=== PATIENT | female | born 1965 | race Caucasian/White ===

== ENCOUNTER → 2016-06-28 | Outpatient (CLI) | payer BC ==
[~2016-06-28] MED LIST: ACET-749 PO; ACP20 PO; KLNUNK; [UNRECOGNIZED DRUG - OTHER]; [UNRECOGNIZED DRUG - OTHER]
--- NOTE | 2016-06-28 12:42 | MAMMOGRAPHY REPORT ---
BILATERAL DIGITAL SCREENING MAMMOGRAM TOMOSYNTHESIS WITH CAD: 06/28/2016 CLINICAL HISTORY: Patient reported to our angio technologist a palpable abnormality and tender ness in the lateral breast. Brownish nipple discharge was noted during mammogram compression. Hist ory of prior left breast surgery. TECHNIQUE: Bilateral breast tomosynthesis in addition to standard 2D mammography was performed. Curr ent study was also evaluated with a Computer Aided Detection (CAD) system. COMPARISON: Comparison is made to exams dated: 08/04/2014 mammogram, 09/04/2012 mammogram, 12/02/2010 c[facility]etano mogram, 03/16/2009 mammogram - [facility], 03/03/2008, and 02/28/2007. BREAST COMPOSITION: The tissue of both breasts is extremely dense, which lowers the sensitivity of mammography. FINDINGS: A linear scar marker overlies the 3:00 middle one third of the left breast. There are ne w regional pleomorphic microcalcifications throughout the left upper outer quadrant, anterior to pos terior depth, warranting additional spot magnification views. There is a new dense mass with partia lly circumscribed and partially obscured borders in the central left breast measuring approximately 3.9 x 2.5 x 2.7 cm. Additional characterization with ultrasound is recommended. There is also a fo danette area of architectural distortion in the upper outer middle one third of the left breast, warrant ing additional spot compression tomosynthesis views and targeted ultrasound. Within the right breast, there is a possible 7.3 mm mass in the upper outer posterior breast, for wh ich additional spot compression tomosynthesis views and targeted ultrasound are recommended. No oth er suspicious mass, focal area of architectural distortion or suspicious calcifications are seen in the right breast. Given the extremely dense breasts consider bilateral whole breast ultrasound at the time of diagnost ic workup as well, including both axillary regions. IMPRESSION: ACR BI-RADS CATEGORY 0: INCOMPLETE EVALUATION: NEED ADDITIONAL IMAGING EVALUATION 1. New regional pleomorphic left breast microcalcifications, focal area of architectural distortion in the left upper outer quadrant and new central left breast mass need additional imaging evaluatio n. 2. Possible 7.3 mm mass in the upper outer posterior right breast needs additional imaging evaluati on. 3. Given the extremely dense breasts and multiple findings within the the breasts, consider bilater al complete breast ultrasound at the time of diagnostic workup (30 minutes). The patient will be called to schedule an appointment. Approximately 10% of breast cancers are not detected with mammography. A negative mammographic repor t should not delay biopsy if a clinically suggestive mass is present. Edel Camilo M.D. ay/:06/28/2016 08:48:12 Quality Control Chemist: Fabricio HERNANDES)(Kellie), [facility] letter sent: Addl Imaging 0 BI-RADS Code: ACR BI-RADS Category 0: Incomplete Evaluation: Need Additional Imaging Evaluation
== END | disposition home or self-care (01) ==
LOC: C.MAMM 07:14
PROVIDERS: ATTEND Family Medicine
DX: Z12.31 Encounter for screening mammogram for malignant neoplasm of breast (principal); R92.0 Mammographic microcalcification found on diagnostic imaging of breast; N63 Unspecified lump in breast

== ENCOUNTER → 2016-07-06 | Outpatient (CLI) | payer BC ==
--- NOTE | 2016-07-06 15:08 | MAMMOGRAPHY REPORT ---
BILATERAL DIGITAL DIAGNOSTIC MAMMOGRAM TOMOSYNTHESIS AND TARGETED LEFT ULTRASOUND: 07/06/2016 CLINICAL HISTORY: Callback from screening mammogram for bilateral breast findings. The patient repo rts a palpable lump in the left breast over the last month. She also reported she had brown nipple discharge in the left breast during her screening mammogram. TECHNIQUE: Breast tomosynthesis in addition to standard 2D mammography was performed. Spot brianna beba left CC and MLO 2-D and tomosynthesis images, spot compression right CC and MLO 2-D and tomosyn thesis images, and spot magnification left CC and ML views were obtained. COMPARISON: Comparison is made to exams dated: 06/28/2016 mammogram, 08/04/2014 mammogram, 09/04/2012 ma mmogram, 12/02/2010 mammogram, and 03/16/2009 mammogram - [facility]. BREAST COMPOSITION: The tissue of both breasts is extremely dense, which lowers the sensitivity of mammography. FINDINGS: Spot magnification views of the left breast demonstrate new coarse heterogeneous calcific ations seen throughout the left upper outer quadrant, with extent measuring 7.9 cm (transverse dimen beba) by 6.0 cm (craniocaudal dimension). Spot compression views of the left breast demonstrate a p ossible obscured mass seen within the left 3:00 breast measuring approximately 2.9 cm. Spot compression views of the right breast demonstrate a lobulated circumscribed 7 mm mass seen with in the right superior posterior breast overlying the right pectoralis muscle, which appears stable c ompared to multiple prior exams including the 2007 exam and is consistent with a benign intramammary lymph node. Targeted ultrasound was performed of the left upper outer quadrant. In the left breast at 3:00 stevie areolar region, there is an oval anechoic circumscribed mass with mobile echogenic internal debris, measuring 2.9 x 1.2 x 3 cm. This corresponds with the mammographic mass and is consistent with a be nign cyst. Ultrasound of the left upper outer quadrant demonstrates diffusely heterogeneous abnorma l tissue, with multiple hypoechoic areas seen throughout the left upper outer quadrant, which contai n echogenic foci which correspond with the calcifications seen mammographically. In the left breast at 2:00, approximately 4-5 cm from the nipple, there is an area of focal hypoechoic tissue with int ernal calcifications, which corresponds with the palpable lump pointed out by the patient. The area is difficult to measure due to the ill-defined nature but measures at least 3 cm. Additionally, th ere is another masslike hypoechoic region in the left breast at 1:00, 2 cm from the nipple, which me asures 1.1 x 0.8 x 1.3 cm. Ill-defined hypoechoic regions are also seen within the left 12:00 breas t, which also contain internal calcifications. The abnormal hypoechoic regions and corresponding ca lcifications are highly suspicious for malignancy, and ultrasound-guided core needle biopsy is recom mended for further evaluation. I would recommend biopsy of 2 areas to determine extent of disease, likely the palpable finding in the left breast at 2:00, 4-5 cm from the nipple, as well as the left 12:00 breast. Targeted ultrasound was performed of the left axilla, which demonstrates 2 prominent axillary lymph nodes, one measuring 1.3 x 0.6 cm, and the other measuring 1.3 cm. Recommend ultrasound guided core needle biopsy of one of the lymph nodes. Bilateral whole breast ultrasound was deferred at this ti me, as MRI would be preferred over whole breast ultrasound given that MRI is more sensitive and give n the ill-defined heterogeneous nature of the findings on ultrasound. IMPRESSION: ACR BI-RADS CATEGORY 5: HIGHLY SUGGESTIVE OF MALIGNANCY, TARGETED ULTRASOUND ACR BI-RAD S CATEGORY 5: HIGHLY SUGGESTIVE OF MALIGNANCY 1. New suspicious calcifications seen throughout the left upper outer quadrant, with corresponding abnormal hypoechoic tissue seen throughout the left upper outer quadrant on ultrasound. One of the abnormal hypoechoic regions and associated calcifications corresponds with the palpable lump felt by the patient in the left breast at approximately 2:00, 4-5 cm from the nipple. Recommend ultrasound -guided core needle biopsy of 2 areas to determine the extent of disease. I would recommend biopsy of the palpable finding in the left 2:00 breast as well as a hypoechoic region with calcifications i n the left 12:00 breast. 2. 2 prominent left axillary lymph nodes, which are indeterminate for malignancy. Recommend ultras ound-guided core needle biopsy of one of the abnormal lymph nodes. 3. Stable mass in the right superior posterior breast, which is benign and consistent with a normal lymph node. 4. If pathology results are malignant, recommend bilateral breast MRI to determine the extent of di sease and evaluate the contralateral breast, given the extremely dense breast parenchyma bilaterally and given the ill-defined nature on ultrasound. A phone call was made to the physician's office to confirm faxed results were received. The patient has been verbally notified of the results. She tentatively scheduled the biopsies before leaving t he department. Approximately 10% of breast cancers are not detected with mammography. A negative mammographic repor t should not delay biopsy if a clinically suggestive mass is present. Haylie Bailey M.D. ah/:07/06/2016 12:24:13 Fitness Sales Consultant: Kailey Devries RT(R)(M), [facility] letter sent: Abnormal 4/5 BI-RADS Code: ACR BI-RADS Category 5: Highly Suggestive Of Malignancy Ultrasound BI-RADS: ACR BI-RA DS Category 5: Highly Suggestive Of Malignancy
== END | disposition home or self-care (01) ==
LOC: C.MAMM 10:50
PROVIDERS: ATTEND Family Medicine
DX: R92.1 Mammographic calcification found on diagnostic imaging of breast (principal); R59.1 Generalized enlarged lymph nodes

== ENCOUNTER → 2016-07-12 | Outpatient (CLI) | payer BC ==
--- NOTE | 2016-07-12 14:15 | Discharge Instructions ---
Discharge Instructions Procedure Procedure Date: Jul 12, 2016. Reason for visit: Left Breast Masses (X3). Discharge Discharge Date: Jul 12, 2016. Discharge Diagnosis: post left breast ultrasound guided core biopsy x 2 and left axillary lymph node FNA Instructions Activity Recommendations: Additional Limitations (see below) Return to School/Work: no limitations Recommended Home Diet: No Limitations Provider Instructions: ACTIVITY RECOMMENDATIONS: * No lifting, pushing, pulling or exercising the affected side for three days. RETURN TO SCHOOL/WORK: * You may return to work/school after the procedure, but do not perform any strenuous activities for 24 to 48 hours. MEDICATIONS: * Tylenol (two 325 mg) every four to six hours if needed for mild pain (if not allergic to Tylenol). DIET: * Resume previous diet. SPECIAL CARE INSTRUCTIONS: * Keep biopsy site dry for 24 hours. May shower after 24 hours, but do not soak (bathe) incision. * May remove Tegaderm (plastic patch) tomorrow AFTER showering. * Leave the steri-strips on for one week. Allow the steri-strips to fall off by themselves. If not off after one week, you may remove them. You may place a Bandaid crosswise over the strips, if desired. * Apply ice 10 minutes on and 10 minutes off as needed. * Wear a bra at bedtime to sleep more comfortably for 2-3 days. * Your referring physician should have the results after approximately 5 to 7 business days. * Call for unusual bleeding, fever, drainage, etc or if you have any questions call [phone] during normal business hours or after hours call Dr Camilo, . FOLLOW UP VISIT: Follow-up with Referring Physician as scheduled. Allergies Coded Allergies: No Known Allergies (Unverified , 05/26/11) Jodi Peguero Recommendations: Call your doctor if: * Temperature above 101 degrees * Pain not relieved by pain medicine ordered * There is increased drainage or redness from any incision * You have any unanswered questions or concerns. Your Doctors Instructions noted above were prepared by provider Edel Camilo. Patient Signature Section: Patient Instructions Signature Page Marianela Sawyer Patient (or Guardian) Signature/Date: I have read and understand the instructions given to me by my caregivers. Caregiver/RN/Doctor Signature/Date: The above-named patient and/or guardian has received patient instructions on this date. + Original Patient Signature Page (only) stays with chart. Please make copy for patient.
--- NOTE | 2016-07-12 16:06 | MAMMOGRAPHY REPORT ---
ULTRASOUND GUIDED BIOPSY: 07/12/2016 CLINICAL HISTORY: Indeterminate painful palpable solid mass in the 2:00 axes of the left breast, and suspicious hypoechoic solid mass with calcification in the 12:00 left breast. Patient presents for ultrasound-guided core needle biopsy 2. Ultrasound-guided fine-needle aspiration of a morphologic ally abnormal left axillary lymph node was also performed. Please refer to the report from left breast ultrasound guided core biopsy performed at the same time for full detail. IMPRESSION: ULTRASOUND GUIDED BIOPSY Please refer to the report from left breast ultrasound guided core biopsy performed at the same time for full detail. Edel Camilo M.D. ay/:07/12/2016 15:30:08 Attending Technologist: Dr. Edel Camilo, [facility] Radiology Special Procedure Tech: Jenni SILVA(Herlinda)(M), [facility]
--- NOTE | 2016-07-12 16:06 | MAMMOGRAPHY REPORT ---
UNILATERAL LEFT DIGITAL DIAGNOSTIC MAMMOGRAM TOMOSYNTHESIS: 07/12/2016 CLINICAL HISTORY: Status post ultrasound-guided core biopsy 2 in the left breast, and FNA of a left axillary lymph node. Please refer to the report from left breast ultrasound guided core biopsy performed at the same time for full detail. IMPRESSION: POST PROCEDURE IMAGING FOR MARKER PLACEMENT Please refer to the report from left breast ultrasound guided core biopsy performed at the same time for full detail. Approximately 10% of breast cancers are not detected with mammography. A negative mammographic repor t should not delay biopsy if a clinically suggestive mass is present. Edel Camilo M.D. ay/:07/12/2016 15:29:10 Supervisor Drilling And Shooting: Jenni HERNANDES)(Kellie), [facility] BI-RADS Code: Post Procedure Imaging For Marker Placement
--- NOTE | 2016-07-12 16:06 | MAMMOGRAPHY REPORT ---
THIS REPORT HAS BEEN AMENDED. MULTIPLE ULTRASOUND GUIDED BIOPSIES LEFT BREAST: 07/12/2016 CLINICAL HISTORY: 51-year-old woman with new pleomorphic microcalcifications throughout the left upp er outer quadrant, anterior, middle and posterior one third of the breast seen on recent screening m ammogram. Also painful palpable area in the 2:00 left breast and indeterminate hypoechoic solid-jana earing masses with associated calcifications in the 12:00 left breast. Patient presents for ultraso und-guided core needle biopsy 2 in the left breast. Also FNA of a morphologically abnormal left ax illary lymph node. COMPARISON: Comparison is made to exams dated: 07/06/2016 ultrasound, 07/06/2016 mammogram, 06/28/2016 m ammogram, 08/04/2014 mammogram, 09/04/2012 mammogram, and 12/02/2010 mammogram - [facility]. PATIENT CONSENT: The procedure, risks and benefits were discussed with the patient and informed writ ten consent was obtained. Specific risks to this procedure include: bleeding, infection and puncture of adjacent structure, nontarget biopsy, sampling error, metal allergy and medication reaction. PROCEDURE DESCRIPTION: A time out was performed and the left breast was agreed as the site of [address] biopsies and left axilla was agreed as the site of the third biopsy. First repeat targeted ultra sound was performed in the left breast, 12:00, 2:00 axes and left axilla. A large hypoechoic solid mass with internal calcification is identified in the 2:00 left breast. This is amenable to biopsy. 2-3 smaller solid masses with internal calcifications are identified in the 12:00 left breast, dis meri from the palpable area in the 2:00 breast. This is also a target for biopsy. Evaluation of the left axilla was technically difficult given thin patient body habitus but a few grouped lump morpho logically abnormal lymph nodes are seen. First the solid lobulated hypoechoic mass in the 2:00 left breast was identified and targeted for bi opsy. The skin of the left breast was prepped and draped in the usual sterile fashion. Subcutaneous and intraparenchymal 1% buffered lidocaine was administered as local anesthesia. A skin incision wa s made. Through the incision, 2 samples were taken with a 14 gauge Achieve biopsy device. A ribbon- shaped metallic marker was placed at the biopsy site. Hemostasis was achieved after manual compressi on. The patient tolerated the procedure well and there was no immediate complication. Then the grouped hypoechoic solid-appearing masses with internal calcifications in the 12:00 left br east were identified and targeted for biopsy. Additional buffered lidocaine with and without epinep hrine was a commercial leasing manager as local anesthesia. A small incision was made. Through the incision, 3 sampl es were obtained with a 14-gauge achieve biopsy device. A ring shaped metallic marker was placed at this biopsy site. Hemostasis was achieved after manual compression. The patient tolerated the proce dure well and there was no immediate complication. Then the patient was repositioned and the left axilla was scanned. The most prominent morphological ly abnormal lymph node was identified and targeted. The decision was made to attempt fine-needle as piration as opposed to core biopsy given a large vessel located abutting and just superior to this l ymph node, and numerous additional vessels surrounding the lymph node. 1% buffered lidocaine withou t epinephrine was administered as local anesthesia. A 22-gauge needle was advanced into the lymph n ode and fine-needle aspiration was performed. The fluid in the needle hub and syringe was rinsed in CytoLyt and sent to the pathology department for cytologic analysis. All of the samples were sent to the pathology department in appropriately labeled containers. Post procedure left CC and ML views were obtained. A new ribbon-shaped clip is seen in the 2:00 pos terior breast and a new ring shaped clip is seen in the 12:00 anterior left breast. Based on the ax ial projection, the biopsy marker clips are located 6 cm apart. No postbiopsy hematoma is seen. IMPRESSION: ULTRASOUND GUIDED BIOPSY 1. Status post ultrasound-guided core needle biopsy in the 12:00 and 2:00 axes of the left breast, with biopsy markers placed at each site. 2. Status post fine-needle aspiration of a morphologically abnormal lymph node in the left axilla. The patient will receive notification of the results from her referring physician. Edel Camilo M.D. ay/:07/12/2016 15:42:24 Tripe Cooker: Jenni OJEDA (R)), [facility] AMENDMENT: 07/18/2016 Edel Camilo M.D. Pathology results from the ultrasound-guided core needle biopsy of a hypoechoic mass in the 2:00 lat eral breast yielded high-grade DCIS. Negative for invasive carcinoma. Estrogen receptor positive ( 2%, weak), and progesterone receptor positive (1%, weak). Pathology results from the ultrasound guided core biopsy of nodular hypoechoic areas with internal c alcifications in the 12:00 left breast yielded ductal carcinoma in situ, high-grade with necrosis. Negative for invasive carcinoma. Pathology results from fine-needle aspiration of an enlarged left axillary lymph node yielded mature -appearing lymphocytes. No malignancy identified. The pathology results from the 2:00 and 12:00 biopsies within the left breast are concordant with th e imaging appearance. To reiterate, the patient has new pleomorphic microcalcifications in a segmen meri distribution spanning from posterior to anterior breast in the left upper outer quadrant. The b iopsy marker clips are 6 cm distal to each other on the postprocedure mammograms. However, given th e extremely dense breasts and multiple other masslike areas bilaterally, would recommend bilateral b reast MRI prior to definitive surgical management, to evaluate extent of disease and assess for cont ralateral disease. The MRI recommendations were discussed with Dr. Wu's Surgical nurse at 3:30 PM on 07/18/2016.
== END | disposition home or self-care (01) ==
LOC: C.MAMM 12:40
PROVIDERS: ATTEND Family Medicine
DX: D05.12 Intraductal carcinoma in situ of left breast (principal)

== ENCOUNTER → 2017-07-03 | Outpatient (CLI) | payer BC ==
--- NOTE | 2017-07-04 07:55 | MAMMOGRAPHY REPORT ---
UNILATERAL RIGHT DIGITAL DIAGNOSTIC MAMMOGRAM TOMOSYNTHESIS WITH CAD AND TARGETED RIGHT ULTRASOUND: CLINICAL HISTORY: 52-year-old woman with a personal history of left breast cancer status post mastect tete diagnosed in July 2016. Pathology results from the mastectomy specimen and sentinel lymph node biopsies yielded ductal carcinoma in situ, high nuclear grade, with the largest focus covering a span of at least 3.6 cm. All resection margins were considered negative. 3 evaluated lymph nodes were n egative for metastasis. She presents for annual evaluation of the right breast. TECHNIQUE: Right breast tomosynthesis in addition to standard 2D mammography was performed. Current s guerrero was also evaluated with a Computer Aided Detection (CAD) system. COMPARISON: Comparison is made to exams dated: 07/06/2016 mammogram, 06/28/2016 mammogram, 08/04/2014 [facility]ano mogram, 09/04/2012 mammogram, 12/02/2010 mammogram, and 03/16/2009 mammogram - [facility]. BREAST COMPOSITION: The tissue of the right breast is extremely dense, which lowers the sensitivity of mammography. FINDINGS: There is a new incompletely visualized reniform shaped 2.1 cm mass in the far superior and posterior right breast on the MLO view, projecting over the pectoralis muscle/axillary region, most l ikely representing a lymph node. Given the slightly prominent nature of this lymph node and new visu alization comparing to prior exams, further characterization with ultrasound was performed. No suspi cious masses, asymmetries, areas of architectural distortion or microcalcifications are seen in the r ight breast. Targeted ultrasound was performed in the right axilla. There are several lymph nodes identified, the largest of which measures approximately 1.5 cm. This largest lymph node has a focally thickened and nodular cortex measuring 6.5 x 5.5 mm and given this focal/eccentric finding, this lymph node is ind eterminate. The remainder of the visualized lymph nodes have smooth and uniform cortices. Incidenta l note is made of an anechoic cyst in the 10:00 right breast, 2 cm from the nipple, measuring 6.3 x 2 .3 x 4.0 mm. IMPRESSION: ACR BI-RADS CATEGORY 0: INCOMPLETE EVALUATION: NEED ADDITIONAL IMAGING EVALUATION, TARG ETED ULTRASOUND ACR BI-RADS CATEGORY 0: INCOMPLETE EVALUATION: NEED ADDITIONAL IMAGING EVALUATION 1. No definite mammographic evidence of malignancy in the right breast. However, given the personal history of multifocal high-grade left breast DCIS and extremely dense breasts, would recommend addit ional screening with breast MRI. 2. There is a newly visualized prominent 2 cm lymph node in the right axilla with focal cortical thi ckening measuring approximately 6.5 x 5.5 mm. although this lymph node could be within the range of n ormal or reactive, metastatic disease cannot be completely excluded, although this would be less like ly given that all of the lymph nodes sampled in the left axilla were negative for metastatic disease. Nevertheless, tissue sampling with attempted fine-needle aspiration versus core biopsy are recommen ded. Will await MRI results prior to biopsy in case any additional mammographic workup and/or ultras ound may be needed, therefore they can all be performed at the same time. These results and recommendations were discussed with the patient at the time of the exam. Approximately 10% of breast cancers are not detected with mammography. A negative mammographic report should not delay biopsy if a clinically suggestive mass is present. Edel Camilo M.D. ay/:07/03/2017 15:45:19 Diver Assistant: Leigha SILVA(R)(M), [facility] letter sent: Addl Imaging 0 BI-RADS Code: ACR BI-RADS Category 0: Incomplete Evaluation: Need Additional Imaging Evaluation Ult rasound BI-RADS: ACR BI-RADS Category 0: Incomplete Evaluation: Need Additional Imaging Evaluation
== END | disposition home or self-care (01) ==
LOC: C.MAMM 10:32
PROVIDERS: ATTEND Surgery
DX: R92.8 Other abnormal and inconclusive findings on diagnostic imaging of breast (principal)

== ENCOUNTER → 2017-07-12 | Outpatient (CLI) | payer BC ==
[~2017-07-12] MED LIST changes: +GADAVIST IV PRN
--- NOTE | 2017-07-16 07:46 | MAMMOGRAPHY REPORT ---
BREAST MRI OF BOTH BREASTS : 07/12/2017 CLINICAL HISTORY: History of left breast cancer status post mastectomy in 2017. The patient presents for screening MRI of the right breast. She also underwent recent ultrasound of the right axilla whi ch showed a prominent right axillary lymph node for which biopsy was recommended. COMPARISON: Comparison is made to exams dated: 07/03/2017 mammogram, 07/12/2016 ultrasound biopsy, 07/12 mammogram, 07/12/2016 ultrasound biopsy, 07/06/2016 mammogram, and 06/28/2016 mammogram - [facility]. Technique: The patient was placed prone in a dedicated breast imaging coil. Precontrast axial T1 santy ghted, axial and sagittal T2 STIR, axial and sagittal T2 fat saturation, and axial T1 weighted fat sa turation images were obtained. After the administration of 5 mL of Gadavist IV contrast, sequential T1-weighted fat saturation images were obtained. Subtraction images were obtained of the dynamic con trast enhanced sequences, and 3-D reformations were performed. The [employer] software was used for kinet ic analysis. Findings: Right breast: There is mild background parenchymal enhancement. A few small enhancing foci are seen scattered within the right breast, felt to represent background parenchymal enhancement. There is a more focal patchy 8 x 5 mm area of non-mass enhancement within the right 6:00 breast (series [id number] im age 66). Within the enhancement is a T2 hyperintense 4 mm mass which demonstrates rim enhancement on the postcontrast sagittal image and is therefore compatible with a cyst (series 10 image 92 and seri es 8 image 34). The non-mass enhancement surrounding the cyst is therefore probably benign and likel y represents fibrocystic changes. The remainder of the right breast demonstrates no suspicious enhan cing masses or areas of abnormal non-mass enhancement. Morphologically normal intramammary lymph nod es are seen within the right upper outer quadrant posteriorly. Left breast: There are expected postsurgical changes in the left breast from mastectomy and silicone implant reconstruction. The silicone implant is intact without evidence of intracapsular or extracap sular rupture. There are no suspicious enhancing masses or areas of abnormal non-mass enhancement in the reconstructed breast. There is no clear evidence of axillary adenopathy on MRI, however, a right axillary lymph node was sh own to have a focally thickened and nodular cortex on a recent ultrasound exam and ultrasound-guided sampling was recommended. The chest wall structures are negative. Extramammary soft tissues are shoaib sly unremarkable. IMPRESSION: ACR BI-RADS CATEGORY 4: SUSPICIOUS 1. No MRI evidence of malignancy in the left reconstructed breast. The left silicone implant is int act without evidence of rupture. 2. Focal 8 mm area of non-mass enhancement within the right 6:00 breast, which is probably benign an d likely represents fibrocystic changes. Given no prior breast MRIs to document stability, recommend follow-up breast MRI in 6 months to confirm stability. 3. The right axillary lymph nodes are not clearly abnormal on MRI, however, one of the right axillar y lymph nodes was shown to have a focally thickened and nodular cortex on a recent ultrasound exam an d ultrasound-guided biopsy was recommended at that diagnostic workup. Therefore, ultrasound-guided f ine-needle aspiration versus core needle biopsy is still recommended. A phone call was made to the physician's office to confirm faxed results were received. Haylie Bailey M.D. 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
== END | disposition home or self-care (01) ==
LOC: C.MRI 14:41
PROVIDERS: ATTEND Surgery
DX: D05.12 Intraductal carcinoma in situ of left breast (principal); R92.2 Inconclusive mammogram

== ENCOUNTER → 2017-07-25 | Outpatient (CLI) | payer BC ==
[~2017-07-25] MED LIST changes: -GADAVIST IV PRN
--- NOTE | 2017-07-25 10:17 | Discharge Instructions ---
Discharge Instructions Procedure Procedure Date: Jul 25, 2017. Reason for visit: Right Axillary Nodes;Focally Thickened & Nodular. Discharge Discharge Date: Jul 25, 2017. Discharge Diagnosis: status post axillary biopsy Instructions Activity Recommendations: Additional Limitations (see below) Return to School/Work: no limitations Recommended Home Diet: No Limitations Provider Instructions: ACTIVITY RECOMMENDATIONS: * No lifting, pushing, pulling or exercising the affected side for three days. RETURN TO SCHOOL/WORK: * You may return to work/school after the procedure, but do not perform any strenuous activities for 24 to 48 hours. MEDICATIONS: * Tylenol (two 325 mg) every four to six hours if needed for mild pain (if not allergic to Tylenol). DIET: * Resume previous diet. SPECIAL CARE INSTRUCTIONS: * Keep biopsy site dry for 24 hours. May shower after 24 hours, but do not soak (bathe) incision. * May remove Tegaderm (plastic patch) tomorrow AFTER showering. * Leave the steri-strips on for one week. Allow the steri-strips to fall off by themselves. If not off after one week, you may remove them. You may place a Bandaid crosswise over the strips, if desired. * Apply ice 10 minutes on and 10 minutes off as needed. * Wear a bra at bedtime to sleep more comfortably for 2-3 days. * Your referring physician should have the results after approximately 5 to 7 business days. * Call for unusual bleeding, fever, drainage, etc or if you have any questions call during normal business hours or after hours call Dr Bailey, . FOLLOW UP VISIT: Follow-up with Referring Physician as scheduled. Allergies Coded Allergies: No Known Allergies (Unverified , 05/26/11) Jodi Peguero Recommendations: Call your doctor if: * Temperature above 101 degrees * Pain not relieved by pain medicine ordered * There is increased drainage or redness from any incision * You have any unanswered questions or concerns. Your Doctors Instructions noted above were prepared by provider Haylie Bailey. Patient Signature Section: Patient Instructions Signature Page Marianela Jacques Patient (or Guardian) Signature/Date: I have read and understand the instructions given to me by my caregivers. Caregiver/RN/Doctor Signature/Date: The above-named patient and/or guardian has received patient instructions on this date. + Original Patient Signature Page (only) stays with chart. Please make copy for patient.
--- NOTE | 2017-07-26 14:45 | MAMMOGRAPHY REPORT ---
ULTRASOUND GUIDED BIOPSY RIGHT BREAST: 07/25/2017 CLINICAL HISTORY: Prominent right axillary lymph node with focal thickening of the cortex, for which tissue sampling was recommended. COMPARISON: Comparison is made to exams dated: 07/03/2017 ultrasound, 07/03/2017 mammogram, 07/12/2016 ul trasound biopsy, 07/12/2016 mammogram, 07/12/2016 ultrasound biopsy, and 07/06/2016 ultrasound - [facility]. PATIENT CONSENT: The procedure, risks and benefits were discussed with the patient and informed writt en consent was obtained. A timeout was performed immediately prior to the procedure. PROCEDURE DESCRIPTION: Preprocedural ultrasound again demonstrates a right axillary lymph node with f ocal thickening of the cortex. The lymph node is immediately adjacent to 2 prominent blood vessels, and therefore it was deemed unsafe to perform core needle biopsy due to the close proximity of promin ent vessels. Therefore, fine-needle aspiration was performed. With ultrasound guidance, aseptic marques hnique, and lidocaine as the local anesthetic (1% lidocaine to anesthetize the skin and 1% lidocaine with epinephrine to anesthetize the deeper tissues), ultrasound-guided fine-needle aspiration was per formed of the right axillary lymph node of concern using three 22-gauge needle attached to syringes a nd two 18-gauge needle attached to syringes. Immediately thereafter, a metallic localizer clip was p laced into the lymph node. Direct pressure was applied to the site immediately post procedure and he mostasis was achieved. Postprocedure mammograms were not performed as the area would not be well-vis ualized mammographically due to the deep location within the axilla. The patient tolerated the proce dure without complication. She was given wound care instructions. The specimens were sent in saline to cytology for analysis. IMPRESSION: ULTRASOUND GUIDED BIOPSY Ultrasound-guided fine-needle aspiration of the right axillary lymph node with focally thickened shiva ex, with clip placement. The patient will receive pathology results from her referring provider. Haylie Bailey M.D. /:07/26/2017 11:41:41 Entry: kb - 07/26/2017 11:41:41 Monument Stonecutter: Es Hernandez RT, [facility]
== END | disposition home or self-care (01) ==
LOC: C.MAMM 09:27
PROVIDERS: ATTEND Surgery
DX: R92.8 Other abnormal and inconclusive findings on diagnostic imaging of breast (principal); N63.10 Unspecified lump in the right breast, unspecified quadrant